=== PATIENT | female | born 1955 | race Caucasian/White ===

== ENCOUNTER → 2017-12-14 | Outpatient (CLI) | payer MEDICARE ==
[~2017-12-14] MED LIST: DIPH25CA61 PO; LISI-170 PO; OMEP20TA62 PO; ONDA4TAB7 PO
[2017-12-14 12:05] LABS: MICROSCOPIC INDICATED
[2017-12-14 12:21] LABS: CULTURE INDICATED? NO
== END | disposition home or self-care (01) ==
LOC: STAR 09:40
PROVIDERS: ATTEND Obstetrics & Gynecology
DX: Z01.818 Encounter for other preprocedural examination (principal); N81.11 Cystocele, midline; N81.6 Rectocele
CPT/HCPCS: 81001

== ENCOUNTER 2017-12-18 12:18 | Observation (INO) | payer MEDICARE ==
[~2017-12-18] VITALS: Ht 154.9 cm; Wt 52.3 kg
[2017-12-18] MEDS ORDERED: LACTATED RINGERS 1,000 ML IV SCH (12:22)
[2017-12-18] MEDS ORDERED: ACETAMINOPHEN 500 MG TABLET PO ONE (12:30)
[2017-12-18] MEDS ORDERED: GABAPENTIN 300 MG CAPSULE PO ONE (12:30)
[2017-12-18] MEDS ORDERED: FENTANYL PF 250 MCG/5ML ONE (14:17)
[2017-12-18] MEDS ORDERED: MIDAZOLAM 1 MG/ML, 2ML ONE (14:17)
[2017-12-18] MEDS ORDERED: BUPIVACAINE 0.25% ONE (14:19)
[2017-12-18] MEDS ORDERED: EPINEPHRINE 1 MG/ML, 1ML ONE ×2 (14:19→14:45)
[2017-12-18] MEDS ORDERED: LIDOCAINE GEL 2%, 5ML ONE (14:20)
[2017-12-18] MEDS ORDERED: KETOROLAC 30 MG/1 ML ONE (14:29)
[2017-12-18] MEDS ORDERED: LIDOCAINE 2%, 10ML ONE (14:45)
[2017-12-18] MEDS ORDERED: FLUORESCEIN SODIUM 500 MG/5 ML ONE (14:45)
[2017-12-18] MEDS ORDERED: MEPERIDINE/PF 25MG/0.5ML IVPush PRN (15:30)
[2017-12-18] MEDS ORDERED: SCOPOLAMINE PATCH, 1.5MG PATCH.TD72 TD PRN (15:30)
[2017-12-18] MEDS ORDERED: OXYcodone 5 MG/5 ML ORAL.SOL UDC PO PRN (15:30)
[2017-12-18] MEDS ORDERED: PROMETHAZINE 25 MG/ML, 1ML IV PRN (15:30)
[2017-12-18] MEDS ORDERED: MIDAZOLAM 1 MG/ML, 2ML IV PRN (15:30)
[2017-12-18] MEDS ORDERED: HYDROmorphone 1 MG/ML, 1ML IV PRN (15:30)
[2017-12-18] MEDS ORDERED: LABETALOL 5MG/ML, 20ML IV PRN (15:30)
[2017-12-18] MEDS ORDERED: ALBUTEROL/IPRATROPIUM 2.5MG/0.5MG, 3 ML NPPB PRN (15:30)
[2017-12-18] MEDS ORDERED: ONDANSETRON 2MG/ML, 2ML IV PRN (15:30)
[2017-12-18] MEDS ORDERED: FENTANYL PF 100 MCG/2ML IV PRN (15:30)
[2017-12-18] MEDS ORDERED: THROMBIN 5,000 UNIT VIAL TP ONE (16:22)
[2017-12-18] MEDS ORDERED: ONDANSETRON 2MG/ML, 2ML ONE ×2 (16:28→18:01)
[2017-12-18] MEDS ORDERED: DEXAMETHASONE 4 MG/ML, 1ML ONE (16:28)
[2017-12-18] MEDS ORDERED: ROCURONIUM 10MG/ML,5ML ONE (16:28)
[2017-12-18] MEDS ORDERED: PROPOFOL 10 MG/ML, 20ML ONE (16:28)
[2017-12-18] MEDS ORDERED: CEFAZOLIN 1,000 MG ONE (16:28)
[2017-12-18] MEDS ORDERED: ONDANSETRON 2MG/ML, 2ML IVPush PRN (17:30)
[2017-12-18] MEDS ORDERED: ACETAMINOPHEN 325 MG TABLET PO PRN (17:30)
[2017-12-18] MEDS ORDERED: PROMETHAZINE 25 MG/ML, 1ML ONE (17:30)
[2017-12-18] MEDS ORDERED: OXYcodone/APAP 5/325MG TABLET PO PRN (17:30)
[2017-12-18] MEDS ORDERED: FENTANYL PF 100 MCG/2ML ONE (17:43)
[2017-12-18] MEDS ORDERED: OXYcodone 5 MG/5 ML ORAL.SOL UDC ONE (17:44)
[2017-12-18] MEDS ORDERED: SCOPOLAMINE PATCH, 1.5MG PATCH.TD72 TD ONE (17:47)
[2017-12-18] MEDS ORDERED: METOCLOPRAMIDE 5 MG/ML, 2ML IVPush PRN (19:00)
[2017-12-18 19:26] VITALS: BP 138/84
[2017-12-18] MEDS: D5%-LACTATED RINGERS 1,000 ML IV SCH (20:18)
[2017-12-18] MEDS: DOCUSATE 100 MG CAPSULE PO SCH (21:00)
[2017-12-18] MEDS: IBUPROFEN 600 MG TABLET PO SCH (21:00)
[2017-12-19 00:47] VITALS: BP 112/63
[2017-12-19] MEDS: D5%-LACTATED RINGERS 1,000 ML IV SCH (04:01)
[2017-12-19 04:02] VITALS: BP 98/83
[2017-12-19] MEDS: IBUPROFEN 600 MG TABLET PO SCH (05:53)
[2017-12-19 08:30] VITALS: BP 113/71
[2017-12-19] MEDS ORDERED: OXYC-302 PO (08:38)
[2017-12-19] MEDS ORDERED: ONDA4TAB10 PO (08:39)
[2017-12-19] MEDS ORDERED: IBUP-1222 PO (08:40)
[2017-12-19] MEDS ORDERED: LISINOPRIL 20 MG TABLET PO SCH (09:00)
[2017-12-19] MEDS: DOCUSATE 100 MG CAPSULE PO SCH (09:15)
[2017-12-19] MEDS ORDERED: ONDANSETRON ODT 4 MG PO PRN (10:00)
== END 2017-12-19 10:02 | disposition home or self-care (01) ==
LOC: OUT 12:18 → ORIP 17:11 → 4NOR 18:18
PROVIDERS: ADMIT Obstetrics & Gynecology; ATTEND Obstetrics & Gynecology
DX: N81.4 Uterovaginal prolapse, unspecified (principal); N81.10 Cystocele, unspecified
CPT/HCPCS: 36415; 57120; 58270; 85014; 85018; 88305; 96374; G0378; J0171; J0690; J1100; J1885; J2250; J2405; J2550; J2704; J2765; J3010; J3490; J7120; J7121

== ENCOUNTER 2017-12-25 08:31 | Inpatient (IN) | payer MEDICARE ==
[~2017-12-25] VITALS: Ht 154.9 cm; Wt 51.0 kg
[~2017-12-25 08:31] MED LIST changes: +IBUP-1222 PO; +ONDA4TAB10 PO; +OXYC-302 PO
[2017-12-25] MEDS ORDERED: ONDANSETRON 2MG/ML, 2ML ONE (09:27)
[2017-12-25] MEDS ORDERED: MORPHINE SULFATE 4 MG/ML, 1ML ONE ×2 (09:27→11:15)
[2017-12-25] MEDS: MORPHINE SULFATE 4 MG/ML, 1ML IVPush PRN ×2 (09:29→11:17)
[2017-12-25] MEDS ORDERED: SODIUM CHLORIDE FLUSH 10ML SYR IVF ONE (09:30)
[2017-12-25] MEDS ORDERED: SODIUM CHLORIDE 0.9% 1,000ML IVBOLUS ONE (09:30)
[2017-12-25] MEDS ORDERED: ONDANSETRON 2MG/ML, 2ML IVPush ONE (09:30)
[2017-12-25 09:42] LABS: ALANINE AMINOTRANSFERASE 26 U/L (12-78); ANION GAP 14 mmol/L (5-15); CALCIUM 9.4 mg/dL (8.5-10.1); CHLORIDE 106 mmol/L (98-107); CREATININE 0.68 mg/dL (0.55-1.02)
[2017-12-25 09:44] LABS: ALKALINE PHOSPHATASE 67 U/L (45-117); BILIRUBIN,TOTAL 0.5 mg/dL (0.2-1.0); TOTAL PROTEIN 7.6 g/dL (6.4-8.2)
[2017-12-25 09:47] LABS: BASOPHILS # (AUTO) 0.04 x10^3/uL (0-0.1); BASOPHILS % (AUTO) 0 % (0-1); EOSINOPHILS # (AUTO) 0.28 x10^3/uL (0-0.4); EOSINOPHILS % (AUTO) 2 % (1-7); LYMPHOCYTES # (AUTO) 1.05 x10^3/uL (1-3.4); LYMPHOCYTES % (AUTO) 7 % (22-44); MD NO; MEAN CORPUSCULAR HEMOGLOBIN 29.7 pg (27.0-34.8); MEAN CORPUSCULAR HGB CONC 34.7 g/dL (32.4-35.8); MEAN CORPUSCULAR VOLUME 85.6 fL (80-100); MEAN PLATELET VOLUME 7.7 fL (7.4-10.4); MONOCYTES % (AUTO) 2 % (2-9); NEUTROPHILS # (AUTO) 13.43 x10^3/uL (1.8-6.8); NEUTROPHILS % (AUTO) 89 % (42-75); PLATELET COUNT 329 x10^3/uL (130-400); RED BLOOD COUNT 5.13 x10^6/uL (3.82-5.3); RED CELL DISTRIBUTION WIDTH 14.2 % (9.6-15.2)
[2017-12-25] MEDS ORDERED: OMNIPAQUE 350 MG/ML, 100ML BOTTLE ONE (10:43)
[2017-12-25] MEDS ORDERED: PROMETHAZINE 25 MG/ML, 1ML ONE (11:09)
[2017-12-25] MEDS ORDERED: PROMETHAZINE 25 MG/ML, 1ML IM ONE (11:30)
[2017-12-25] MEDS ORDERED: SODIUM CHLORIDE 0.9% 1,000 ML IV ONE (11:44)
[2017-12-25] MEDS ORDERED: SODIUM CHLORIDE FLUSH 10ML SYR IVF PRN (12:00)
[2017-12-25 12:33] VITALS: BP 147/81
[2017-12-25] MEDS ORDERED: HYDROmorphone 2 MG/ML, 1ML IVPush PRN (19:00)
[2017-12-25] MEDS: SODIUM CHLORIDE 0.9% IV SCH (20:39)
[2017-12-25] MEDS: SODIUM CHLORIDE 0.9% 1,000 ML IV SCH (20:39)
[2017-12-25] MEDS: RANITIDINE IV SCH (20:39)
[2017-12-25] MEDS: METOCLOPRAMIDE 5 MG/ML, 2ML IVPush SCH (20:39)
[2017-12-25 20:44] VITALS: BP 139/75
[2017-12-25] MEDS ORDERED: RANITIDINE 25 MG/ML, 2ML IV SCH (21:00)
[2017-12-26 01:36] VITALS: BP 122/69
[2017-12-26 01:37] VITALS: BP 122/69
[2017-12-26 02:22] LABS: CULTURE INDICATED? YES; MICROSCOPIC INDICATED
[2017-12-26] MEDS: METOCLOPRAMIDE 5 MG/ML, 2ML IVPush SCH ×4 (03:51→20:29)
[2017-12-26] MEDS: SODIUM CHLORIDE 0.9% 1,000 ML IV SCH (05:39)
[2017-12-26 06:40] VITALS: BP 116/64
[2017-12-26] MEDS: SODIUM CHLORIDE 0.9% IV SCH ×2 (09:24→20:29)
[2017-12-26] MEDS: RANITIDINE IV SCH ×2 (09:24→20:29)
[2017-12-26] MEDS: PANTOPRAZOLE 40 MG IV IVPush SCH ×2 (09:25→20:28)
[2017-12-26 11:45] LABS: ANION GAP 11 mmol/L (5-15); CALCIUM 7.9 mg/dL (8.5-10.1); CHLORIDE 113 mmol/L (98-107)
[2017-12-26 11:48] LABS: MEAN CORPUSCULAR HEMOGLOBIN 29.7 pg (27.0-34.8); MEAN CORPUSCULAR HGB CONC 34.4 g/dL (32.4-35.8); MEAN CORPUSCULAR VOLUME 86.4 fL (80-100); MEAN PLATELET VOLUME 7.1 fL (7.4-10.4); PLATELET COUNT 249 x10^3/uL (130-400); RED BLOOD COUNT 3.91 x10^6/uL (3.82-5.3); RED CELL DISTRIBUTION WIDTH 14.1 % (9.6-15.2)
[2017-12-26 11:49] LABS: ALANINE AMINOTRANSFERASE 23 U/L (12-78); ALKALINE PHOSPHATASE 44 U/L (45-117); BILIRUBIN,TOTAL 0.6 mg/dL (0.2-1.0); CREATININE 0.45 mg/dL (0.55-1.02); TOTAL PROTEIN 5.5 g/dL (6.4-8.2)
[2017-12-26 12:14] LABS: BASOPHILS # (AUTO) 0.03 x10^3/uL (0-0.1); BASOPHILS % (AUTO) 0 % (0-1); EOSINOPHILS # (AUTO) 0.27 x10^3/uL (0-0.4); EOSINOPHILS % (AUTO) 3 % (1-7); LYMPHOCYTES # (AUTO) 1.47 x10^3/uL (1-3.4); LYMPHOCYTES % (AUTO) 14 % (22-44); MD SCAN; MONOCYTES # (AUTO) 0.83 x10^3/uL (0.2-0.8); MONOCYTES % (AUTO) 8 % (2-9); NEUTROPHILS # (AUTO) 8.18 x10^3/uL (1.8-6.8); NEUTROPHILS % (AUTO) 76 % (42-75)
[2017-12-26 13:46] VITALS: BP 137/77
[2017-12-26] MEDS: D5%-0.45NACL+KCL 20MEQ 1,000 ML IV SCH ×2 (14:58→23:09)
[2017-12-26 18:46] VITALS: BP 136/77
[2017-12-26 18:47] VITALS: BP 144/76
[2017-12-26] MEDS ORDERED: LISINOPRIL 20 MG TABLET PO SCH (21:30)
[2017-12-27 00:17] VITALS: BP 143/83
[2017-12-27] MEDS: ONDANSETRON 2MG/ML, 2ML IVPush PRN ×2 (01:38→07:33)
[2017-12-27] MEDS: METOCLOPRAMIDE 5 MG/ML, 2ML IVPush SCH (02:26)
[2017-12-27] MEDS: D5%-0.45NACL+KCL 20MEQ 1,000 ML IV SCH ×2 (06:28→14:57)
[2017-12-27 06:30] VITALS: BP 151/94
[2017-12-27] MEDS ORDERED: ONDANSETRON 2MG/ML, 2ML IVPush PRN (08:00)
[2017-12-27] MEDS ORDERED: METOCLOPRAMIDE 5 MG/ML, 2ML ONE (08:14)
[2017-12-27] MEDS: RANITIDINE IV SCH (08:19)
[2017-12-27] MEDS: LISINOPRIL 20 MG TABLET PO SCH ×2 (08:19→20:37)
[2017-12-27] MEDS: SODIUM CHLORIDE 0.9% IV SCH (08:19)
[2017-12-27] MEDS: PANTOPRAZOLE 40 MG IV IVPush SCH ×2 (08:19→20:37)
[2017-12-27] MEDS ORDERED: SODIUM CHLORIDE 0.9% IV PRN (09:30)
[2017-12-27] MEDS ORDERED: METOCLOPRAMIDE IV PRN (09:30)
[2017-12-27] MEDS ORDERED: METOCLOPRAMIDE 10MG TABLET PO PRN (10:00)
[2017-12-27 13:43] VITALS: BP 138/84
[2017-12-27 21:31] VITALS: BP 144/78
[2017-12-28 03:48] VITALS: BP 124/77
[2017-12-28 07:50] VITALS: BP 144/84
[2017-12-28] MEDS: LISINOPRIL 20 MG TABLET PO SCH (08:11)
[2017-12-28] MEDS: PANTOPRAZOLE 40 MG IV IVPush SCH (08:11)
[2017-12-28 12:45] VITALS: BP 153/83
== END 2017-12-28 13:55 | disposition home or self-care (01) | DRG 389 ==
LOC: ED 11:43 → EDIP 11:44 → ED 11:51 → 4NOR 12:29 → DCLOUNGE 12-28 13:50
PROVIDERS: ADMIT Obstetrics & Gynecology; ATTEND Obstetrics & Gynecology
PROC: 0D9670Z Drainage of Stomach with Drainage Device, Via Natural or Artificial Opening (ICD-10-PCS; principal; 2017-12-25)
DX: K56.0 Paralytic ileus (principal); E44.1 Mild protein-calorie malnutrition; R10.2 Pelvic and perineal pain; E86.0 Dehydration; I25.10 Atherosclerotic heart disease of native coronary artery without angina pectoris; Z90.710 Acquired absence of both cervix and uterus; Z83.3 Family history of diabetes mellitus; Z82.49 Family history of ischemic heart disease and other diseases of the circulatory system; Z82.3 Family history of stroke; Z88.6 Allergy status to analgesic agent; Z91.010 Allergy to peanuts
CPT/HCPCS: 36415; 74018; 74021; 74176; 74177; 80053; 81001; 83690; 85025; 87086; 87147; 93005; 96361; 96374; 96375; J2405; J2550; J2780; Q9967; C9113; J2765; J3480; J7030